=== PATIENT | male | born 1955 | race Caucasian/White ===

== ENCOUNTER 2019-02-07 05:46 | Inpatient (IN) | payer SELFPAY ==
[2019-02-07] MEDS ORDERED: METHYLPREDNISOLONE INJ 125 MG/2 ML SDV IV ONE (05:53)
[2019-02-07] MEDS ORDERED: NITROGLYCERIN 2% OINTMENT 1 GM PACKET TP ONE (05:53)
[2019-02-07] MEDS ORDERED: IPRATROPIUM/ALBUTEROL 0.5-2.5 MG/3 ML AMPUL NEB ONE ×2 (05:53)
[2019-02-07] MEDS ORDERED: NITROGLYCERIN 2% OINTMENT 1 GM PACKET ONE (05:54)
--- NOTE | 2019-02-07 05:58 | ER Document Report ---
ED Medical Screen (RME) - General Stated Complaint: RESPIRATORY DISTRESS Time Seen by Provider: 02/07/19 05:53 Notes: 63-year-old male comes by EMS for chief complaint of respiratory distress, patient reportedly has a history of CHF and smoked cigarettes until 1 year ago, he states he is supposed be taking blood pressure medication but is not. He was initially 74% on room air, he was given 3 sublingual nitroglycerin and 1.25 mg of enalapril by EMS. Blood pressure initially was in the 220s. Patient is much improved he reports. Denies fever. Physical Exam - Respiratory Respiratory status: Respiratory distress, Labored Breath sounds: Decreased air movement, Wheezing Course - Re-evaluation Re-evalutation: On my evaluation patient has expiratory wheezes, no noted rales. No lower extremity swelling. 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 Work-up pending. Patient is able to speak, he was transitioned to BiPAP because he still has labored breathing, he is tolerating BiPAP well. I have greeted and performed a rapid initial assessment of this patient. A comprehensive ED assessment and evaluation of the patient, analysis of test results and completion of the medical decision making process will be conducted by additional ED providers.
[2019-02-07 06:10] LABS: ABSOLUTE BASOPHILS # (AUTO) 0.1 10^3/uL (0.0-0.2); ABSOLUTE EOSINOPHILS # (AUTO) 0.9 10^3/uL (0.0-0.6); ABSOLUTE LYMPHOCYTES (AUTO) 1.4 10^3/uL (0.5-4.7); ABSOLUTE MONOCYTES (AUTO) 0.5 10^3/uL (0.1-1.4); BASOPHILS % (AUTO) 0.8 % (0-2); EOSINOPHILS % (AUTO) 8.4 % (0-6); HEMATOCRIT 46.9 % (37.9-51.0); HEMOGLOBIN 15.9 g/dL (13.5-17.0); MEAN CORPUSCULAR HEMOGLOBIN 31.4 pg (27.0-33.4); MEAN CORPUSCULAR HGB CONC 33.9 g/dL (32.0-36.0); MEAN CORPUSCULAR VOLUME 93 fl (80-97); MONOCYTES % (AUTO) 4.4 % (3-13); PLATELET COUNT 289 10^3/uL (150-450); RED BLOOD COUNT 5.06 10^6/uL (4.35-5.55); RED CELL DISTRIBUTION WIDTH 14.4 % (11.5-14.0); SEGMENTED NEUTROPHILS % (AUTO) 73.4 % (42-78); TOTAL CELLS COUNTED % (AUTO) 100 %; WHITE BLOOD COUNT 10.9 10^3/uL (4.0-10.5)
[2019-02-07 06:21] LABS: VENOUS BLOOD BASE EXCESS -0.3 mmol/L; VENOUS BLOOD HCO3 28.5 mmol/L (20-32); VENOUS BLOOD PCO2 63.8 mmHg (35-63); VENOUS BLOOD PH 7.27 (7.30-7.42)
--- NOTE | 2019-02-07 06:27 | ER Document Report ---
ED General - General Stated Complaint: RESPIRATORY DISTRESS Time Seen by Provider: 02/07/19 05:53 - HPI Notes: Patient is a 66-year-old male that presents to the emergency department for chief complaint of shortness of breath. Patient states he woke up early this morning feeling very short of breath. He states he was unable to get out of bed or ambulate because of his dyspnea. He denies ever requiring home oxygen or history of heart failure. He does state that he has been on water pills previously after receiving a coronary stent which was about a year ago. He denies any associated chest pain but does state that he was coughing. Patient denies any symptoms yesterday or recent illness. Patient received Nitropaste, enalapril, and CPAP by EMS and currently states he is feeling much better. He does have a history of hypertension but currently does not have a primary care provider and is not taking any blood pressure medications. EMS reported a BP of 217/152 prior to receiving medications. Patient also had a home O2 of 74% on room air. He states he is a former smoker but denies history of COPD or requiring breathing treatments in the past. Past Medical History: Hypertension Past Surgical History: Reviewed in chart Social History: Quit tobacco 2 years ago. Denies alcohol or drug use Family History: Reviewed and noncontributory for presenting illness Allergies: Reviewed, see documented allergy list. REVIEW OF SYSTEMS: CONSTITUTIONAL : No fever No chills No diaphoresis No recent illness EENT: No vision changes No congestion No sore throat CARDIOVASCULAR: No chest pain No palpitations RESPIRATORY: shortness of breath cough difficulty breathing GASTROINTESTINAL: No abdominal pain No nausea No vomiting No diarrhea GENITOURINARY: No dysuria No hematuria No difficulty urinating MUSCULOSKELETAL: No back pain No leg pain No arm pain SKIN: No rashes No lesions LYMPHATIC: No swollen, enlarged glands. NEUROLOGICAL: No lightheadedness No headache No weakness No paresthesias PSYCHIATRIC: No anxiety No depression PHYSICAL EXAMINATION: Vital signs reviewed, nursing noted reviewed. GENERAL: Well-appearing, well-nourished and in no acute distress. HEAD: Atraumatic, normocephalic. EYES: Eyes appear normal, extraocular movements intact, sclera anicteric, conjunctiva are normal. ENT: nares patent, oropharynx clear without exudates. Moist mucous membranes. NECK: Normal range of motion, supple without lymphadenopathy LUNGS: Tachypneic, moderate accessory muscle use, bibasilar rhonchi, speaking in partial sentences. HEART: Tachycardic rate and regular rhythm without murmurs ABDOMEN: Soft, nontender, normoactive bowel sounds. No rebound, guarding, or ri gidity. No masses appreciated. EXTREMITIES: Nontender, good range of motion, no pitting or edema. NEUROLOGICAL: No focal neurological deficits. Moves all extremities spontaneously Motor and sensory grossly intact on exam. PSYCH: Normal mood, normal affect. SKIN: Warm, Dry, normal turgor, no rashes or lesions noted on exposed skin - Related Data Allergies/Adverse Reactions: No Known Allergies Allergy (Unverified 02/07/19 07:27) Past Medical History - Social History Smoking Status: Former Smoker Family History: Reviewed & Not Pertinent Physical Exam - Vital signs Vitals: Resp Pulse Ox 25 H 99 02/07/19 05:53 02/07/19 05:53 Course - Re-evaluation Re-evalutation: 02/07/19 06:26 Vitals reviewed. Nursing notes reviewed. Patient has improved with CPAP, enalapril, and Nitropaste. He is currently oxygenating at 98% on CPAP. Blood pressure is 122/88 which is significantly improved from when EMS first evaluated him. Patient reports feeling significant improvement as well. EKG shows a tachycardic rhythm with no acute ischemic changes. Patient is not having any active chest pain. 02/07/19 06:54 Patient's venous blood gas showed an acidosis consistent with hypercapnic respiratory failure. Repeat ABG after he had been on BiPAP shows resolution of the acidosis. Patient's chest x-ray is consistent with pulmonary edema. They also read possible underlying pneumonia however he has not had fevers or chills, has no significant leukocytosis, and symptoms occurred rapidly overnight which is not consistent with pneumonia, antibiotics will currently be held. Patient has been improving significantly while in the emergency room. His blood pressure has remained stable. He will be admitted to the hospital for further medical management. Laboratory 02/07/19 02/07/19 02/07/19 05:50 05:50 05:50 WBC 10.9 H RBC 5.06 Hgb 15.9 Hct 46.9 MCV 93 MCH 31.4 MCHC 33.9 RDW 14.4 H Plt Count 289 Seg Neutrophils % 73.4 Lymphocytes % 13.0 Monocytes % 4.4 Eosinophils % 8.4 H Basophils % 0.8 Absolute Neutrophils 8.0 Absolute Lymphocytes 1.4 Absolute Monocytes 0.5 Absolute Eosinophils 0.9 H Absolute Basophils 0.1 Carbonic Acid HCO3/H2CO3 Ratio ABG pH ABG pCO2 ABG pO2 ABG HCO3 ABG Total CO2 ABG O2 Saturation ABG Base Excess VBG pH VBG pCO2 VBG HCO3 VBG Base Excess FiO2 Sodium 138.6 Potassium 5.0 Chloride 102 Carbon Dioxide 27 Anion Gap 10 BUN 14 Creatinine 1.06 Est GFR ( Amer) > 60 Est GFR (Non-Af Amer) > 60 Glucose 158 H Calcium 9.3 Total Bilirubin 0.5 Direct Bilirubin 0.3 Neonat Total Bilirubin Not Reportable Neonat Direct Bilirubin Not Reportable Neonat Indirect Bili Not Reportable AST 32 ALT 37 Alkaline Phosphatase 67 Troponin I 0.053 NT-Pro-B Natriuret Pep 772 Total Protein 7.5 Albumin 4.4 02/07/19 02/07/19 05:50 06:20 WBC RBC Hgb Hct MCV MCH MCHC RDW Plt Count Seg Neutrophils % Lymphocytes % Monocytes % Eosinophils % Basophils % Absolute Neutrophils Absolute Lymphocytes Absolute Monocytes Absolute Eosinophils Absolute Basophils Carbonic Acid 1.20 HCO3/H2CO3 Ratio 19:1 ABG pH 7.38 ABG pCO2 39.8 ABG pO2 116.5 H ABG HCO3 23.2 ABG Total CO2 24.5 ABG O2 Saturation 98.2 H ABG Base Excess -1.6 VBG pH 7.27 L VBG pCO2 63.8 H VBG HCO3 28.5 VBG Base Excess -0.3 FiO2 40% Sodium Potassium Chloride Carbon Dioxide Anion Gap BUN Creatinine Est GFR ( Amer) Est GFR (Non-Af Amer) Glucose Calcium Total Bilirubin Direct Bilirubin Neonat Total Bilirubin Neonat Direct Bilirubin Neonat Indirect Bili AST ALT Alkaline Phosphatase Troponin I NT-Pro-B Natriuret Pep Total Protein Albumin Chest X-Ray 02/07/19 05:54 IMPRESSION: Mild mixed interstitial and airpace opacities. Differential diagnosis includes pulmonary edema, multifocal pneumonia, and chronic interstitial lung disease. 02/07/19 08:14 Patient has continued to have improvement of his respiratory status with blood pressure control. He was weaned off of CPAP and is currently on 4 L nasal cannula. Patient will be admitted for further management. Case discussed with Dr. Munoz who accepts admission. - Vital Signs Vital signs: Temp Pulse Resp BP Pulse Ox 97.8 F 20 107/75 97 02/07/19 06:01 02/07/19 07:01 02/07/19 07:01 02/07/19 07:01 - Laboratory Result Diagrams: 02/07/19 05:50 02/07/19 05:50 Laboratory results interpreted by me: 02/07/19 02/07/19 02/07/19 05:50 05:50 05:50 WBC 10.9 H RDW 14.4 H Eosinophils % 8.4 H Absolute Eosinophils 0.9 H ABG pO2 ABG O2 Saturation VBG pH 7.27 L VBG pCO2 63.8 H Glucose 158 H 02/07/19 06:20 WBC RDW Eosinophils % Absolute Eosinophils ABG pO2 116.5 H ABG O2 Saturation 98.2 H VBG pH VBG pCO2 Glucose - EKG Interpretation by Me Additional EKG results interpreted by me: 02/07/19 06:26 Interpreted by myself [id number]: Sinus tachycardia, rate 102, normal axis, no ectopy, no STEMI, nonspecific T wave abnormalities inferior leads Critical Care Note - Critical Care Note Total time excluding time spent on procedures (mins): 35 Comments: Critical care time 35 exclusive from separate billable procedures for a patient requiring complex medical decision making, and high potential for clinical deterioration. Time spent obtaining history from patient or surrogate, discussions with consultants, development of treatment plan with patient or surrogate, evaluation of patient's response to treatment, examination of patient, ordering and performing treatments and interventions, ordering and review of laboratory studies, re-evaluation of patient's condition, ordering and review of radiographic studies and review of old charts Discharge - Discharge Clinical Impression: Respiratory acidosis, Hypoxia, Flash pulmonary edema Condition: Stable Disposition: ADMITTED INPATIENT Admitting Provider: Tammy (Hospitalist) Unit Admitted: Telemetry
[2019-02-07 06:31] LABS: ALANINE AMINOTRANSFERASE 37 U/L (21-72); ALBUMIN 4.4 g/dL (3.5-5.0); ALKALINE PHOSPHATASE 67 U/L (38-126); ANION GAP 10 (5-19); ASPARTATE AMINO TRANSFERASE 32 U/L (17-59); BILIRUBIN,DIRECT 0.3 mg/dL (0.0-0.4); BILIRUBIN,TOTAL 0.5 mg/dL (0.2-1.3); BLOOD UREA NITROGEN 14 mg/dL (7-20); CALCIUM 9.3 mg/dL (8.4-10.2); CARBON DIOXIDE 27 mmol/L (22-30); CHLORIDE 102 mmol/L (98-107); GLUCOSE 158 mg/dL (75-110); SODIUM 138.6 mmol/L (137-145); TOTAL PROTEIN 7.5 g/dL (6.3-8.2)
[2019-02-07 06:40] LABS: ARTERIAL BLOOD BASE EXCESS -1.6 mmol/L; ARTERIAL BLOOD FIO2 40%; ARTERIAL BLOOD HCO3 23.2 mmol/L (20-24); ARTERIAL BLOOD O2 SATURATION 98.2 % (94-98); ARTERIAL BLOOD PCO2 39.8 mmHg (35-45); ARTERIAL BLOOD PH 7.38 (7.35-7.45); ARTERIAL BLOOD PO2 116.5 mmHg (80-100); ARTERIAL BLOOD TOTAL CO2 24.5 mmol/L (23-27)
--- NOTE | 2019-02-07 06:40 | RADIOLOGY REPORT (SQ) ---
EXAM DESCRIPTION: XR CHEST 1 VIEW COMPLETED DATE/TME: 02/07/2019 05:54 CLINICAL HISTORY: 63 years Male, shortness of breath COMPARISON: None. NUMBER OF VIEWS/TECHNIQUE: 1/AP FINDINGS: Adequate lung volume, mild mixed interstitial and airspace opacity, normal cardiac silhouette, and intact bony thorax. IMPRESSION: Mild mixed interstitial and airpace opacities. Differential diagnosis includes pulmonary edema, multifocal pneumonia, and chronic interstitial lung disease.
[2019-02-07 06:46] LABS: TROPONIN I 0.053 ng/mL
[2019-02-07] MEDS ORDERED: HYDRALAZINE HCL INJ/PF 20 MG/1 ML SDV IV PRN (11:25)
--- NOTE | 2019-02-07 11:25 | PDOC H&P ---
History of Present Illness Admission Date/PCP: 02/07/19 08:12 Patient complains of: SOB History of Present Illness: ISIDORO SAL is a 63 year old male with a past medical history of CAD with prior stenting on the left circumflex artery for 80% stenosis in March 2018 at [facility], hypertension, heavy cigarette smoking (quit 2 years ago), and alcohol abuse who presented with shortness of breath. Patient says that he developed shortness of breath 3 days ago. He says this improved and he thought he was apparently fine until last night when he woke up at 4 in the morning and had recurrence of shortness of breath. He did not have any chest pain. He called EMS and he was noted to be hypertensive at 215/157 systolic blood pressure. He received Nitropaste, enalapril from EMS. He was hypoxic at 74% on room air and was placed on CPAP. He claims his blood pressures have been well controlled and he has not been taking any antihypertensives for the past 6 months. In the ER, chest x-ray showed possible pulmonary edema. He says he has nonproductive cough. Denies fever chills. Past Medical History Cardiac Medical History: Reports: Congestive Heart Failure Pulmonary Medical History: Reports: Chronic Obstructive Pulmonary Disease (COPD) Social History Smoking Status: Former Smoker Family History Family History: Reviewed & Not Pertinent Parental Family History Reviewed: Yes - mom-[place] in the 70s Children Family History Reviewed: No Sibling(s) Family History Reviewed.: No Medication/Allergy Home Medications: No Home Medications 02/07/19 Allergies/Adverse Reactions: No Known Allergies Allergy (Unverified 02/07/19 07:27) Review of Systems All systems: reviewed and no additional remarkable complaints except as stated - As mentioned in HPI Physical Exam Vital Signs: Temp Pulse Resp BP Pulse Ox 97.8 F 20 132/85 H 93 02/07/19 06:01 02/07/19 09:01 02/07/19 09:01 02/07/19 09:01 Intake & Output 02/06/19 02/07/19 02/08/19 06:59 06:59 06:59 Weight 183 lb General appearance: PRESENT: no acute distress, well-developed, well-nourished Head exam: PRESENT: atraumatic, normocephalic Eye exam: PRESENT: conjunctiva pink, EOMI, PERRLA. ABSENT: scleral icterus Ear exam: PRESENT: normal external ear exam Mouth exam: PRESENT: moist, tongue midline Neck exam: ABSENT: carotid bruit, JVD, lymphadenopathy, thyromegaly Respiratory exam: PRESENT: rales - base. ABSENT: rhonchi, wheezes Cardiovascular exam: PRESENT: RRR. ABSENT: diastolic murmur, rubs, systolic murmur Pulses: PRESENT: normal dorsalis pedis pul GI/Abdominal exam: PRESENT: normal bowel sounds, soft. ABSENT: distended, guarding, mass, organolmegaly, rebound, tenderness Rectal exam: PRESENT: deferred Neurological exam: PRESENT: alert, awake, oriented to person, oriented to place, oriented to time, oriented to situation, CN II-XII grossly intact. ABSENT: motor sensory deficit Results Laboratory Results: 02/07/19 05:50 02/07/19 05:50 02/07/19 02/07/19 02/07/19 05:50 05:50 05:50 WBC 10.9 H RBC 5.06 Hgb 15.9 Hct 46.9 MCV 93 MCH 31.4 MCHC 33.9 RDW 14.4 H Plt Count 289 Seg Neutrophils % 73.4 Lymphocytes % 13.0 Monocytes % 4.4 Eosinophils % 8.4 H Basophils % 0.8 Absolute Neutrophils 8.0 Absolute Lymphocytes 1.4 Absolute Monocytes 0.5 Absolute Eosinophils 0.9 H Absolute Basophils 0.1 Carbonic Acid HCO3/H2CO3 Ratio ABG pH ABG pCO2 ABG pO2 ABG HCO3 ABG O2 Saturation ABG Base Excess VBG pH 7.27 L VBG pCO2 63.8 H VBG HCO3 28.5 VBG Base Excess -0.3 FiO2 Sodium 138.6 Potassium 5.0 Chloride 102 Carbon Dioxide 27 Anion Gap 10 BUN 14 Creatinine 1.06 Est GFR ( Amer) > 60 Est GFR (Non-Af Amer) > 60 Glucose 158 H Calcium 9.3 Total Bilirubin 0.5 AST 32 ALT 37 Alkaline Phosphatase 67 Total Protein 7.5 Albumin 4.4 02/07/19 06:20 WBC RBC Hgb Hct MCV MCH MCHC RDW Plt Count Seg Neutrophils % Lymphocytes % Monocytes % Eosinophils % Basophils % Absolute Neutrophils Absolute Lymphocytes Absolute Monocytes Absolute Eosinophils Absolute Basophils Carbonic Acid 1.20 HCO3/H2CO3 Ratio 19:1 ABG pH 7.38 ABG pCO2 39.8 ABG pO2 116.5 H ABG HCO3 23.2 ABG O2 Saturation 98.2 H ABG Base Excess -1.6 VBG pH VBG pCO2 VBG HCO3 VBG Base Excess FiO2 40% Sodium Potassium Chloride Carbon Dioxide Anion Gap BUN Creatinine Est GFR ( Amer) Est GFR (Non-Af Amer) Glucose Calcium Total Bilirubin AST ALT Alkaline Phosphatase Total Protein Albumin 02/07/19 05:50 Troponin I 0.053 NT-Pro-B Natriuret Pep 772 Impressions: Chest X-Ray 02/07/19 05:54 IMPRESSION: Mild mixed interstitial and airpace opacities. Differential diagnosis includes pulmonary edema, multifocal pneumonia, and chronic interstitial lung disease. Assessment and Plan - Diagnosis (1) Acute respiratory failure with hypoxia Is this a current diagnosis for this admission?: Yes Plan: Secondary to acute pulmonary edema. Off CPAP. He is currently saturating well on a NRB at 50% FiO2. (2) Acute pulmonary edema Is this a current diagnosis for this admission?: Yes Plan: Likely from HTN emergency. Lasix 40 mg IV q12. Will restart him on antihypertensives. (3) Hypertensive emergency Is this a current diagnosis for this admission?: Yes Plan: Blood pressures have improved to the 130/90s. He received Nitropaste, enalapril by EMS. (4) CAD (coronary artery disease) Is this a current diagnosis for this admission?: Yes Plan: History of stenting of the circumflex artery for 80% stenosis. Request records from [facility]. - Time Time Spent with patient: 25-34 minutes
[2019-02-07] MEDS: ASPIRIN 81 MG TABLET, CHEWABLE PO SCH (11:38)
[2019-02-07] MEDS: FUROSEMIDE INJ/PF 40 MG/4 ML SDV IV SCH ×2 (11:38→21:11)
--- NOTE | 2019-02-07 12:42 | RADIOLOGY REPORT (SQ) ---
EXAM DESCRIPTION: CT CHEST WITHOUT COMPLETED DATE/TIME: 02/07/2019 11:06 am REASON FOR STUDY: hypoxia COMPARISON: None. TECHNIQUE: CT scan performed of the chest without intravenous contrast. Images reviewed with lung, soft tissue and bone windows. Reconstructed coronal and sagittal MPR images reviewed. All images st ored on PACS. All CT scanners at this facility use dose modulation, iterative reconstruction, and/or weight based d osing when appropriate to reduce radiation dose to as low as reasonably achievable (ALARA). [facility]: Dose Right [facility]: CareDose [facility]: Dose Right [facility]: Teradose 4D [facility]: [employer] RADIATION DOSE: CT Rad equipment meets quality standard of care and radiation dose reduction techniq ues were employed. CTDIvol: 12.0 mGy. DLP: 510 mGy-cm. mGy. LIMITATIONS: No technical limitations. FINDINGS: LUNGS AND PLEURA: No pneumothorax. Scattered ground-glass opacities in both lungs. No de nse consolidation. Minimal posterior basilar subsegmental subpleural atelectasis. Moderate right pl eural effusion, small left pleural effusion. HILAR AND MEDIASTINAL STRUCTURES: No identified masses or abnormal nodes. No obvious aneurysm. HEART AND VASCULAR STRUCTURES: No aneurysm. No pericardial effusion. UPPER ABDOMEN: No significant findings. Limited exam. THYROID AND OTHER SOFT TISSUES: No masses. No adenopathy. BONES: No acute finding. HARDWARE: None in the chest. OTHER: No other significant findings. IMPRESSION: Scattered ground-glass opacities in both lungs. No dense consolidation. Minimal import/export administrator ior basilar subsegmental subpleural atelectasis. Moderate right pleural effusion, small left pleural effusion. TECHNICAL DOCUMENTATION: JOB ID: [id number] Quality ID # [id number]: Final reports with documentation of one or more dose reduction techniques (e.g., Au tomated exposure control, adjustment of the mA and/or kV according to patient size, use of iterative reconstruction technique) 2010 [employer]- All Rights Reserved Reading location - IP/workstation name: [email or web address]
[2019-02-07] MEDS ORDERED: LORAZEPAM INJ 2 MG/1 ML VIAL IV PRN (18:14)
[2019-02-07] MEDS: METOPROLOL TARTRATE 25 MG TABLET PO SCH (21:11)
[2019-02-07] MEDS: HEPARIN SOD (PORCINE) 5,000 UNIT/ML 1 ML SYRINGE SUBCUT SCH (21:11)
[2019-02-07] MEDS ORDERED: ATORVASTATIN CALCIUM 40 MG TABLET PO SCH (22:00)
--- NOTE | 2019-02-07 22:33 | EKG REPORT ---
SEVERITY:- BORDERLINE ECG - SINUS TACHYCARDIA BORDERLINE RIGHT AXIS DEVIATION BORDERLINE T ABNORMALITIES, INFERIOR LEADS : Confirmed by: Fatou Perez MD 07-Feb-2019 22:32:47
[2019-02-08 05:06] LABS: ANION GAP 11 (5-19); BLOOD UREA NITROGEN 21 mg/dL (7-20); CALCIUM 9.3 mg/dL (8.4-10.2); CARBON DIOXIDE 27 mmol/L (22-30); CHLORIDE 100 mmol/L (98-107); GLUCOSE 104 mg/dL (75-110); SODIUM 137.8 mmol/L (137-145)
[2019-02-08 05:16] LABS: POTASSIUM 3.9 mmol/L (3.6-5.0)
[2019-02-08 07:25] VITALS: BP 113/71
[2019-02-08] MEDS ORDERED: CLOPIDOGREL BISULFATE 75 MG TABLET PO SCH (10:00)
[2019-02-08] MEDS: FUROSEMIDE INJ/PF 40 MG/4 ML SDV IV SCH (10:03)
[2019-02-08] MEDS: ASPIRIN 81 MG TABLET, CHEWABLE PO SCH (10:04)
[2019-02-08] MEDS: METOPROLOL TARTRATE 25 MG TABLET PO SCH (10:04)
[2019-02-08] MEDS: HEPARIN SOD (PORCINE) 5,000 UNIT/ML 1 ML SYRINGE SUBCUT SCH (10:04)
--- NOTE | 2019-02-08 10:27 | RADIOLOGY REPORT (SQ) ---
EXAM DESCRIPTION: CHEST SINGLE VIEW COMPLETED DATE/TIME: 02/08/2019 10:19 am REASON FOR STUDY: reassess infiltrates,effusion COMPARISON: 02/07/2019. NUMBER OF VIEWS: One view. TECHNIQUE: Single frontal radiographic view of the chest acquired. LIMITATIONS: None. FINDINGS: LUNGS AND PLEURA: Hyperinflated lungs. Much improved aeration compared to prior, however. No new infiltrates. MEDIASTINUM AND HILAR STRUCTURES: No masses. Contour normal. HEART AND VASCULAR STRUCTURES: Cardiac enlargement. BONES: No acute findings. HARDWARE: None in the chest. OTHER: No other significant finding. IMPRESSION: Improved. Clearance of interstitial infiltrates. TECHNICAL DOCUMENTATION: JOB ID: [id number] [employer]- All Rights Reserved Reading location - IP/workstation name: [email or web address]
[2019-02-08] MEDS ORDERED: LISINOPRIL 5 MG TABLET PO SCH (10:30)
[2019-02-08] MEDS ORDERED: ACETAMINOPHEN 325 MG TABLET PO ONE (11:30)
--- NOTE | 2019-02-08 14:36 | PDOC DISCHARGE SUMMARY ---
General - Admit/Disc Date/PCP Admission Date/Primary Care Provider: 02/07/19 08:12 Discharge Date: 02/08/19 - Discharge Diagnosis (1) Acute respiratory failure with hypoxia Is this a current diagnosis for this admission?: Yes (2) Acute pulmonary edema Is this a current diagnosis for this admission?: Yes (3) Hypertensive emergency Is this a current diagnosis for this admission?: Yes (4) CAD (coronary artery disease) Is this a current diagnosis for this admission?: Yes (5) Chronic systolic (congestive) heart failure Is this a current diagnosis for this admission?: Yes - Additional Information Resuscitation Status: Full Code Prescriptions: Aspirin [Aspirin 81 mg Chewable Tablet] 81 mg PO DAILY #60 tab.chew Atorvastatin Calcium [Lipitor 40 mg Tablet] 40 mg PO QHS #30 tablet Clopidogrel Bisulfate [Plavix 75 mg Tablet] 75 mg PO DAILY #60 tablet Furosemide [Lasix 20 mg Tablet] 20 mg PO DAILY #30 tablet Lisinopril [Prinivil 5 mg Tablet] 5 mg PO DAILY #60 tablet Metoprolol Tartrate [Lopressor 25 mg Tablet] 12.5 mg PO Q12 #30 tablet Home Medications: Aspirin [Aspirin 81 mg Chewable Tablet] 81 mg PO DAILY #60 tab.chew 02/08/19 Atorvastatin Calcium [Lipitor 40 mg Tablet] 40 mg PO QHS #30 tablet 02/08/19 Clopidogrel Bisulfate [Plavix 75 mg Tablet] 75 mg PO DAILY #60 tablet 02/08/19 Furosemide [Lasix 20 mg Tablet] 20 mg PO DAILY #30 tablet 02/08/19 Lisinopril [Prinivil 5 mg Tablet] 5 mg PO DAILY #60 tablet 02/08/19 Metoprolol Tartrate [Lopressor 25 mg Tablet] 12.5 mg PO Q12 #30 tablet 02/08/19 History of Present Illness History of Present Illness: ISIDORO SAL is a 63 year old male with a past medical history of CAD with prior stenting on the left circumflex artery for 80% stenosis in March 2018 at [facility], hypertension, heavy cigarette smoking (quit 2 years ago), and alcohol abuse who presented with shortness of breath. Patient says that he developed shortness of breath 3 days ago. He says this improved and he thought he was apparently fine until last night when he woke up at 4 in the morning and had recurrence of shortness of breath. He did not have any chest pain. Hospital Course Hospital Course: This is a 63 year old male with a past medical history of CAD with prior stenting on the left circumflex artery for 80% stenosis in March 2018 at [facility], hypertension, heavy cigarette smoking (quit 2 years ago), and alcohol abuse who presented with acute shortness of breath associated with severely elevated blood pressure. Patient says that he developed shortness of breath 3 days ago. He says this improved and he thought he was apparently fine until last night when he woke up at 4 in the morning and had recurrence of shortness of breath. He did not have any chest pain. He called EMS and he was noted to be hypertensive at 215/157 systolic blood pressure. He received Nitropaste, enalapril from EMS. He was hypoxic at 74% on room air and was placed on CPAP. He claims his blood pressures have been well controlled and he has not been taking any antihypertensives for the past 6 months. In the ER, chest x-ray showed possible pulmonary edema. Records from [facility] showed he has a known EF of 25% in March 2017. He is supposed to be on DAPT for his stent placed in March 2017 but patient stopped taking all his medications as he says he lost his insurance and is not able to refill any of them. He was restarted on aspirin, clopidogrel, lisinopril and lopressor. He was also started on IV Lasix. He was already back to his baseline after an hour in the ER when his blood pressures were brought down to the 120/80s. He likely went into flash pulmonary edema due to his HTN emergency. Repeat chest x-ray on discharge showed significant improvement of his congestion. He is at his baseline and ambulated the hallway on room air with no difficulty. He will be getting his new medications/regimen from [facility] as arranged by party planner. Physical Exam Vital Signs: Temp Pulse Resp BP Pulse Ox 97.2 F 73 16 113/71 94 02/08/19 11:22 02/08/19 11:22 02/08/19 11:22 02/08/19 07:11 02/08/19 11:22 Intake & Output 02/07/19 02/08/19 02/09/19 06:59 06:59 06:59 Intake Total 755 Output Total 775 Balance -20 Weight 183 lb 183 lb 6.793 oz General appearance: PRESENT: no acute distress, well-developed, well-nourished Head exam: PRESENT: atraumatic, normocephalic Eye exam: PRESENT: conjunctiva pink, EOMI, PERRLA. ABSENT: scleral icterus Ear exam: PRESENT: normal external ear exam Mouth exam: PRESENT: moist, tongue midline Neck exam: ABSENT: carotid bruit, JVD, lymphadenopathy, thyromegaly Respiratory exam: PRESENT: rhonchi. ABSENT: rales, wheezes Cardiovascular exam: PRESENT: RRR. ABSENT: diastolic murmur, rubs, systolic murmur Pulses: PRESENT: normal dorsalis pedis pul GI/Abdominal exam: PRESENT: normal bowel sounds, soft. ABSENT: distended, guarding, mass, organolmegaly, rebound, tenderness Rectal exam: PRESENT: deferred Neurological exam: PRESENT: alert, awake, oriented to person, oriented to place, oriented to time, oriented to situation, CN II-XII grossly intact. ABSENT: motor sensory deficit Results Laboratory Results: 02/07/19 05:50 02/08/19 04:12 02/08/19 04:12 Sodium 137.8 Potassium 3.9 D Chloride 100 Carbon Dioxide 27 Anion Gap 11 BUN 21 H Creatinine 1.00 Est GFR ( Amer) > 60 Est GFR (Non-Af Amer) > 60 Glucose 104 Calcium 9.3 Magnesium 2.0 02/07/19 05:50 Troponin I 0.053 NT-Pro-B Natriuret Pep 772 Impressions: Chest CT 02/07/19 10:44 IMPRESSION: Scattered ground-glass opacities in both lungs. No dense consolidation. Minimal posterior basilar subsegmental subpleural atelectasis. Moderate right pleural effusion, small left pleural effusion. Chest X-Ray 02/08/19 00:00 IMPRESSION: Improved. Clearance of interstitial infiltrates. Qualifiers - * PATIENT BEING DISCHARGED WITH ANY OF THE FOLLOWING DIAGNOSIS: No Acute Heart Failure Is this a Heart Failure Patient?: Yes Documentation of LVEF assessment?: Yes Reason(s) not discharged on ARB: Other Reason(s) not discharged on ARNI: Other d) Discharged on evidence-based Beta vish(carvedilol, sustained release metoprolol succinate, or bisoprolol)?: Yes Follow-up Appointment scheduled within 7 days?: Yes
== END 2019-02-08 13:29 | disposition home or self-care (01) | DRG 291 ==
LOC: ER 05:46 → EH 08:12 → 3S 15:32
PROVIDERS: ADMIT Internal Medicine; ATTEND Internal Medicine
DX: I11.0 Hypertensive heart disease with heart failure (principal); J96.01 Acute respiratory failure with hypoxia; I16.1 Hypertensive emergency; I50.22 Chronic systolic (congestive) heart failure; T46.5X6A Underdosing of other antihypertensive drugs, initial encounter; I25.10 Atherosclerotic heart disease of native coronary artery without angina pectoris; Z95.5 Presence of coronary angioplasty implant and graft; Z87.891 Personal history of nicotine dependence; Z91.120 Patient's intentional underdosing of medication regimen due to financial hardship; Z59.7 Insufficient social insurance and welfare support
CPT/HCPCS: 36415; 71045; 71250; 80048; 80053; 82803; 83735; 83880; 84484; 85025; 93005; 93010; 93306; 94640; 94660; 96374; 99291; J1644; J1940; J2930; J7620

== ENCOUNTER 2019-02-12 05:58 | Emergency (ER) | payer SELFPAY ==
[2019-02-12] MEDS ORDERED: IPRATROPIUM/ALBUTEROL 0.5-2.5 MG/3 ML AMPUL NEB ONE (06:19)
[2019-02-12 06:26] LABS: ABSOLUTE BASOPHILS # (AUTO) 0.1 10^3/uL (0.0-0.2); ABSOLUTE EOSINOPHILS # (AUTO) 0.7 10^3/uL (0.0-0.6); ABSOLUTE LYMPHOCYTES (AUTO) 1.5 10^3/uL (0.5-4.7); ABSOLUTE MONOCYTES (AUTO) 0.7 10^3/uL (0.1-1.4); ABSOLUTE NEUT (AUTO) 6.2 10^3/uL (1.7-8.2); BASOPHILS % (AUTO) 0.8 % (0-2); EOSINOPHILS % (AUTO) 7.5 % (0-6); HEMATOCRIT 45.6 % (37.9-51.0); HEMOGLOBIN 15.6 g/dL (13.5-17.0); LYMPHOCYTES % (AUTO) 16.7 % (13-45); MEAN CORPUSCULAR HEMOGLOBIN 31.8 pg (27.0-33.4); MEAN CORPUSCULAR HGB CONC 34.2 g/dL (32.0-36.0); MEAN CORPUSCULAR VOLUME 93 fl (80-97); MONOCYTES % (AUTO) 7.9 % (3-13); PLATELET COUNT 294 10^3/uL (150-450); RED BLOOD COUNT 4.91 10^6/uL (4.35-5.55); RED CELL DISTRIBUTION WIDTH 14.2 % (11.5-14.0); SEGMENTED NEUTROPHILS % (AUTO) 67.1 % (42-78); TOTAL CELLS COUNTED % (AUTO) 100 %; WHITE BLOOD COUNT 9.3 10^3/uL (4.0-10.5)
[2019-02-12 06:40] LABS: ALANINE AMINOTRANSFERASE 42 U/L (21-72); ALBUMIN 4.3 g/dL (3.5-5.0); ALKALINE PHOSPHATASE 69 U/L (38-126); ANION GAP 10 (5-19); ASPARTATE AMINO TRANSFERASE 32 U/L (17-59); BILIRUBIN,DIRECT 0.3 mg/dL (0.0-0.4); BLOOD UREA NITROGEN 19 mg/dL (7-20); CALCIUM 9.6 mg/dL (8.4-10.2); CARBON DIOXIDE 28 mmol/L (22-30); CHLORIDE 99 mmol/L (98-107); CREATINE KINASE 42 U/L (55-170); GLUCOSE 120 mg/dL (75-110); SODIUM 136.9 mmol/L (137-145); TOTAL PROTEIN 7.6 g/dL (6.3-8.2)
--- NOTE | 2019-02-12 06:52 | RADIOLOGY REPORT (SQ) ---
EXAM DESCRIPTION: CHEST SINGLE VIEW COMPLETED DATE/TIME: 02/12/2019 6:32 am REASON FOR STUDY: SOB COMPARISON: 02/08/2019 NUMBER OF VIEWS: One view. TECHNIQUE: Single frontal radiographic view of the chest acquired. LIMITATIONS: None. FINDINGS: LUNGS AND PLEURA: Mild vascular congestion. MEDIASTINUM AND HILAR STRUCTURES: Stable contours. HEART AND VASCULAR STRUCTURES: Cardiomegaly. BONES: No acute findings. HARDWARE: None in the chest. OTHER: No other significant finding. IMPRESSION: Cardiomegaly with mild vascular congestion. TECHNICAL DOCUMENTATION: JOB ID: [id number] [employer]- All Rights Reserved Reading location - IP/workstation name: [email or web address]
[2019-02-12 06:53] LABS: CREATINE KINASE MB 1.41 ng/mL (<4.55); TROPONIN I 0.044 ng/mL
[2019-02-12] MEDS ORDERED: FUROSEMIDE INJ/PF 20 MG/2 ML SDV IV ONE (07:22)
--- NOTE | 2019-02-12 07:29 | EKG REPORT ---
SEVERITY:- ABNORMAL ECG - SINUS RHYTHM PROBABLE LEFT ATRIAL ABNORMALITY NONSPECIFIC INTRAVENTRICULAR CONDUCTION DELAY NONSPECIFIC ST-T CHANGES- INFERIOR-LATERAL LEADS : Confirmed by: Antoine Cardona MD 12-Feb-2019 07:28:56
--- NOTE | 2019-02-12 07:34 | ER Document Report ---
Entered by TAD OCONNOR SCRIBE 02/12/19 0640 Acting as scribe for:RASHI NÚÑEZ MD ED Respiratory Problem - General Chief Complaint: Respiratory Distress Stated Complaint: RESPIRATORY DISTRESS Time Seen by Provider: 02/12/19 06:11 Mode of Arrival: Medic Information source: Patient Notes: Patient is a 63 year old male with CHF, COPD, HTN presents to the emergency department complaining of shortness of breath onset yesterday worsening this morning. He states he woke up this morning with continued shortness of breath and proceeded to take his blood pressure and noted it to be 215/175. He states he proceeded to take nitro which momentarily helped his symptoms. He states he called EMS after he noted his shortness of breath was returning. He also reports developing a productive cough with white sputum this morning. He states he currently feels better after receiving a breathing treatment from EMS. EMS reports an oxygen saturation rate of 88% and respiration rate of 40 upon arrival to the scene. They proceeded to administer a nebulizer treatment, Solu Medrol, nitro paste and magnesium sulfate and placed the patient on CPAP. Of note, patient was admitted to the hospital from 02/07-02/08 for HTN and pulmonary edema. Patient states his current symptoms feels similar. Patient states he is now compliant with all of his medications which includes Plavix. Patient received a stent in March 2018. He had an ejection fraction of 25% at that time. TRAVEL OUTSIDE OF THE [place] IN LAST 30 DAYS: No - Related Data Allergies/Adverse Reactions: No Known Allergies Allergy (Verified 02/12/19 07:18) Past Medical History - General Information source: Patient - Social History Smoking Status: Former Smoker Cigarette use (# per day): No Chew tobacco use (# tins/day): No Frequency of alcohol use: 2-3 beers a night Occupation: [employer] Family History: Reviewed & Not Pertinent Patient has suicidal ideation: No Patient has homicidal ideation: No - Past Medical History Cardiac Medical History: Reports: Hx Congestive Heart Failure, Hx Hypertension Pulmonary Medical History: Reports: Hx COPD Review of Systems - Review of Systems Constitutional: No symptoms reported EENT: No symptoms reported Cardiovascular: No symptoms reported Respiratory: See HPI, Cough, Short of breath Gastrointestinal: No symptoms reported Genitourinary: No symptoms reported Male Genitourinary: No symptoms reported Musculoskeletal: No symptoms reported Skin: No symptoms reported Hematologic/Lymphatic: No symptoms reported Neurological/Psychological: No symptoms reported -: Yes All other systems reviewed and negative Physical Exam - Vital signs Vitals: Resp 19 02/12/19 06:01 - Notes Notes: GENERAL: Alert, interacts well. No acute distress. HEAD: Normocephalic, atraumatic. EYES: Pupils equal, round, and reactive to light. Extraocular movements intact. ENT: Oral mucosa moist, tongue midline. NECK: Full range of motion. Supple. Trachea midline. LUNGS: Mildly dyspneic. Wheezes and rhonchi with cough. On bedside caridac monitor, 98% oxygenation saturation on 2L of nasal cannula, good wave form, not hypoxic per my interpretation. HEART: Regular rate and rhythm. No murmurs, gallops, or rubs. ABDOMEN: Soft, non-tender. Non-distended. Bowel sounds present in all 4 quadrants. No guarding, rigidity, or rebound. EXTREMITIES: Moves all 4 extremities spontaneously. No edema, radial and dorsalis pedis pulses 2/4 bilaterally. No cyanosis. NEUROLOGICAL: Alert and oriented x3. Normal speech. PSYCH: Normal affect, normal mood. SKIN: Warm, dry, normal turgor. No rashes or lesions noted. Course - Re-evaluation Re-evalutation: 02/12/19 09:30 Patient states his breathing feels much better. His oxygen was turned off at this time see how he does. He states he could tell a significant difference in his breathing after the breathing treatments by EMS and again here in the emergency room. At this point he has diuresed approximately 2 L. He does not have inhalers or any other treatment for his COPD at home. 02/12/19 09:54 Room air O2 saturation is 94%. He states his breathing feels quite comfortable, and cannot tell any difference after the oxygen was turned off. - Vital Signs Vital signs: Temp Pulse Resp BP Pulse Ox 97.9 F 19 116/83 94 02/12/19 07:30 02/12/19 09:01 02/12/19 09:01 02/12/19 09:01 - Laboratory Result Diagrams: 02/12/19 06:05 02/12/19 06:05 Laboratory results interpreted by me: 02/12/19 02/12/19 02/12/19 06:05 06:05 07:45 RDW 14.2 H Eosinophils % 7.5 H Absolute Eosinophils 0.7 H Sodium 136.9 L Glucose 120 H Creatine Kinase 42 L Urine Protein 30 H Urine Blood SMALL H - Diagnostic Test Radiology reviewed: Image reviewed, Reports reviewed - Chest x-ray shows cardiomegaly with mild vascular congestion - EKG Interpretation by Me EKG shows normal: Sinus rhythm, [place], Intervals, QRS Complexes, ST-T Waves Rate: Normal - 81 Rhythm: NSR [place]/QRS: IVCD P Waves: LAE When compared to previous EKG there are: No significant change Discharge - Discharge Clinical Impression: Acute exacerbation of chronic obstructive pulmonary disease (COPD), Pulmonary vascular congestion Chronic CHF (congestive heart failure) Qualifiers: Heart failure type: unspecified Qualified Code(s): I50.9 - Heart failure, unspecified Condition: Stable Disposition: HOME, SELF-CARE Additional Instructions: Your shortness of breath today seem to be a combination of COPD and a little fluid retention in your lungs. Continue your regular medications. Add the inhaler as dispensed. Try to avoid sodium in your diet. Follow-up with your doctor to discuss long-term treatment of your COPD. RETURN TO THE EMERGENCY ROOM IF ANY NEW OR WORSENING SYMPTOMS. Scribe Attestation: 02/12/19 07:36 I personally performed the services described in the documentation, reviewed and edited the documentation which was dictated to the scribe in my presence, and it accurately records my words and actions. I personally performed the services described in the documentation, reviewed and edited the documentation which was dictated to the scribe in my presence, and it accurately records my words and actions.
[2019-02-12 08:01] LABS: APPEARANCE,URINE CLEAR; BILIRUBIN,URINE NEGATIVE (NEGATIVE); COLOR,URINE YELLOW; GLUCOSE, URINE NEGATIVE (NEGATIVE); KETONES,URINE NEGATIVE (NEGATIVE); LEUKOCYTE ESTERASE,URINE NEGATIVE (NEGATIVE); NITRITE,URINE NEGATIVE (NEGATIVE); PROTEIN,URINE 30 mg/dL (NEGATIVE); URINE SPECIFIC GRAVITY 1.011; UROBILINOGEN,URINE NEGATIVE mg/dL (<2.0)
[2019-02-12 09:04] VITALS: BP 116/83
[2019-02-12] MEDS ORDERED: ACETAMINOPHEN 325 MG TABLET PO ONE (09:37)
[2019-02-12] MEDS ORDERED: ALBUTEROL SULFATE HFA (90 MCG/PUFF) 8 GM MDI (1 MDI/ER DISP) IH ONE (09:54)
== END 2019-02-12 10:18 | disposition home or self-care (01) ==
LOC: ER 05:58
DX: J44.1 Chronic obstructive pulmonary disease with (acute) exacerbation (principal); R09.89 Other specified symptoms and signs involving the circulatory and respiratory systems; I50.9 Heart failure, unspecified; R05 Cough; R06.02 Shortness of breath; I11.0 Hypertensive heart disease with heart failure; Z79.899 Other long term (current) drug therapy; Z87.891 Personal history of nicotine dependence
CPT/HCPCS: 93005; 94640; 99285; 96374; 36415; 82553; 82550; 85025; 80053; 81001; 84484; 83880; 71045; 93010; J1940; J3490; J7620

== ENCOUNTER → 2020-10-29 | Outpatient (CLI) | payer SELFPAY ==
[2020-10-29 12:38] LABS: HEMATOCRIT 48.3 % (37.9-51.0); HEMOGLOBIN 16.3 g/dL (13.5-17.0); MEAN CORPUSCULAR HEMOGLOBIN 30.8 pg (27.0-33.4); MEAN CORPUSCULAR HGB CONC 33.8 g/dL (32.0-36.0); MEAN CORPUSCULAR VOLUME 91 fl (80-97); PLATELET COUNT 323 10^3/uL (150-450); RED BLOOD COUNT 5.31 10^6/uL (4.35-5.55); WHITE BLOOD COUNT 10.3 10^3/uL (4.0-10.5)
[2020-10-29 12:57] LABS: ALBUMIN 4.6 g/dL (3.5-5.0); ALKALINE PHOSPHATASE 71 U/L (38-126); ANION GAP 8 (5-19); ASPARTATE AMINO TRANSFERASE 27 U/L (17-59); BILIRUBIN,DIRECT 0.3 mg/dL (0.0-0.4); BLOOD UREA NITROGEN 15 mg/dL (7-20); CALCIUM 9.9 mg/dL (8.4-10.2); CARBON DIOXIDE 33 mmol/L (22-30); CHLORIDE 91 mmol/L (98-107); GLUCOSE 105 mg/dL (75-110); POTASSIUM 5.5 mmol/L (3.6-5.0); TOTAL PROTEIN 8.1 g/dL (6.3-8.2)
== END ==
LOC: OD 11:41
PROVIDERS: ATTEND Internal Medicine Gastroenterology
DX: K62.5 Hemorrhage of anus and rectum (principal)
CPT/HCPCS: 36415; 80053; 85027